=== PATIENT | female | born 1985 ===

== ENCOUNTER 2021-01-17 13:29 | Emergency (ER) | payer SELFPAY ==
[2021-01-17 16:29] VITALS: BP 150/88
--- NOTE | 2021-01-17 18:06 | Emergency Department Report ---
Chief Complaint: High BP Stated Complaint: ELEVATED BLOOD PRESSURE Time Seen by Provider: 01/17/21 18:03 - HPI History of Present Illness: Patient is a 35-year-old female presents emergency room with complaints of elevated blood pressure. she states she took her blood pressure this morning and it was 147/101. Patient states that she had preeclampsia in her and was previously on blood pressure medication but was able to stop one month after delivery. she states she had her child 7 months ago. she states her primary care doctor took her off of the blood pressure medicine. She states that she does intermittently checks her blood pressure. She states that she is completely asymptomatic. No other past medical history. No allergies medications. Vitals with mildly elevated blood pressure, otherwise stable On exam: Non toxic appearing, no acute distress atraumatic, normocephalic normal appearance of the eyes, PERRL, EOMI, no periorbital edema or ecchymosis moist mucus membranes regular heart rate and rhythm, no gallops, no rubs, no murmurs breath sounds are clear bilaterally, no w/r/r A&O x4, no focal neuro deficit skin is warm, dry, intact Patient presents for elevated blood pressure reading BP is 150/88 Patient is asymptomatic The up-to-date medical literature does not recommend emergently lowering asymptomatic elevated blood pressure, pts blood pressure is not significantly elevated advised pt Please keep a blood pressure log and take this to your primary care doctor. Eat a low-sodium diet. Incorporate 30-60 minutes of daily exercise. Return to emergency room for new or symptoms. Medical screening exam is performed there is no threat to life or limb at this time - Exam Vital Signs: Vital Signs 01/17/21 16:29 Temperature 98 F Pulse Rate 81 Respiratory 16 Rate Blood Pressure 150/88 [Right] O2 Sat by Pulse 98 Oximetry MSE screening note: Focused history and physical exam performed. Due to findings the following was ordered: ED Disposition for MSE Clinical Impression: Elevated blood pressure reading Disposition: DC-01 TO HOME OR SELFCARE Is pt being admited?: No Does the pt Need Aspirin: No Condition: Stable Instructions: Managing Your Hypertension Additional Instructions: Please keep a blood pressure log and take this to your primary care doctor. Eat a low-sodium diet. Incorporate 30-60 minutes of daily exercise. Return to emergency room for new or symptoms. Referrals: your, primary care doctor [Other] - 2-3 Days Time of Disposition: 18:05 Print Language: YAKUT
== END 2021-01-17 18:39 | disposition home or self-care (01) ==
LOC: ED 13:29
DX: R03.0 Elevated blood-pressure reading, without diagnosis of hypertension (principal)
CPT/HCPCS: 99281